=== PATIENT | female | born 1975 | race Hispanic/Latino ===

== ENCOUNTER 2022-07-28 20:36 | Emergency (ER) | payer BC ==
[~2022-07-28] VITALS: Ht 165.1 cm; Wt 110.8 kg
[2022-07-28 21:18] LABS: BASOPHILS % (AUTO) 0.3 % (0.0-5.0); EOSINOPHILS % (AUTO) 1.4 % (0.0-8.0); HEMATOCRIT 41.5 % (36-48); LYMPHOCYTES % (AUTO) 31.9 % (21.0-51.0); MEAN CORPUSCULAR HEMOGLOBIN 26.8 pg (27.0-33.0); MEAN CORPUSCULAR HGB CONC 32.5 g/dL (32.0-36.0); MEAN CORPUSCULAR VOLUME 82.5 fL (79-99); MONOCYTES % (AUTO) 7.7 % (3.0-13.0); NEUTROPHILS % (AUTO) 58.4 % (40.0-77.0); PLATELET COUNT (AUTO) 379 K/uL (130-400); RED BLOOD CELL COUNT(AUTO) 5.03 MIL/uL (4.00-5.50); RED CELL DISTRIBUTION WIDTH 13.7 % (11.0-15.5)
[2022-07-28 21:27] LABS: HCG,QUALITATIVE URINE NEGATIVE (NEGATIVE)
[2022-07-28] MEDS ORDERED: SOLU-MEDROL 125MG VIAL IM ONE (21:30)
[2022-07-28 21:31] LABS: APPEARANCE,URINE CLEAR (CLEAR); BILIRUBIN,URINE NEGATIVE (NEGATIVE); COLOR,URINE LIGHT-YELLOW (YELLOW); GLUCOSE, URINE (UA) >=1000 mg/dL (NEGATIVE); KETONES,URINE NEGATIVE (NEGATIVE); LEUKOCYTE ESTERASE ,URINE NEGATIVE Leu/uL (NEGATIVE); NITRATE,URINE NEGATIVE (NEGATIVE); OCCULT BLOOD,URINE NEGATIVE (NEGATIVE); PH,URINE 5.5 (5.0-8.0); PROTEIN,URINE NEGATIVE (NEGATIVE); UROBILINOGEN,URINE 0.2 mg/dL (0.2-1.0)
[2022-07-28 21:33] LABS: SQUAMOUS EPITHELIAL CELL,UR FEW /HPF (0-2)
[2022-07-28 21:37] LABS: ALBUMIN 2.9 g/dL (3.5-5.0); CREATININE 0.7 mg/dL (0.5-1.5); POTASSIUM 3.3 mmol/L (3.5-5.1); TOTAL PROTEIN, SERUM 7.4 g/dL (6.0-8.3)
[2022-07-29] MEDS ORDERED: METH4TAB3 PO (00:07)
[2022-07-29] MEDS ORDERED: HYDR25CA PO (00:07)
[2022-07-29 00:16] VITALS: BP 126/74
[2022-07-29] MEDS ORDERED: POTASSIUM BICARB/CIT AC 25 MEQ TABLET.EFF PO ONE (00:30)
== END 2022-07-29 00:31 | disposition home or self-care (01) ==
LOC: EDH 20:36
DX: S29.011A Strain of muscle and tendon of front wall of thorax, initial encounter (principal); F41.9 Anxiety disorder, unspecified; I10 Essential (primary) hypertension; E11.9 Type 2 diabetes mellitus without complications; Z88.8 Allergy status to other drugs, medicaments and biological substances; X58.XXXA Exposure to other specified factors, initial encounter; Y93.89 Activity, other specified; Y92.89 Other specified places as the place of occurrence of the external cause; Y99.8 Other external cause status
CPT/HCPCS: 99284; 84484; 80053; 85025; 81001; 81025; 36415; 96372; 93005; J2930

== ENCOUNTER 2024-06-22 08:33 | Emergency (ER) | payer BC ==
[~2024-06-22] VITALS: Ht 165.1 cm; Wt 113.4 kg
[~2024-06-22 08:33] MED LIST: HYDR25CA PO; METH4TAB3 PO
[2024-06-22 08:40] VITALS: BP 126/88; PULSE 90; RESP 16; TEMP 98.3; O2SAT 96
--- NOTE | 2024-06-22 09:47 | EKG ---
[facility] Test Date: 2024-06-22 Test Time: 09:30:06 Pat Name: MAGEN SKINNER Department: [facility] Room: Gender: F Polisher Aluminum: [id number] : 1975 Requested By: JENNIFER NIXON Order Number: [id number] Reading MD: Radha Al Measurements Intervals [place] Rate: 83 P: 30 ID: [id number] QRS: -6 QRSD: 94 T: 40 QT: 359 QTc: 423 Interpretive Statements Sinus rhythm Probable left atrial enlargement Compared to ECG 07/28/2022 20:57:56 No significant changes Electronically Signed On 06-22-2024 14:04:42 [employer]DOCTORAL SCHOLAR by Radha Al Please click the below link to view image of tracing.
[2024-06-22 09:50] LABS: BASOPHILS # (AUTO) 0.02 K/uL (0.00-0.20); BASOPHILS % (AUTO) 0.2 % (0.0-5.0); EOSINOPHILS # (AUTO) 0.03 K/uL (0.00-0.70); EOSINOPHILS % (AUTO) 0.4 % (0.0-8.0); HEMATOCRIT 47.3 % (36-48); IMMATURE GRANULOCYTE ABSOLUTE 0.03 K/uL (0-1); LYMPHOCYTES # (AUTO) 0.8 K/uL (1.0-4.8); LYMPHOCYTES % (AUTO) 9.5 % (21.0-51.0); MEAN CORPUSCULAR HEMOGLOBIN 28.3 pg (27.0-33.0); MEAN CORPUSCULAR VOLUME 85.7 fL (79-99); MONOCYTES # (AUTO) 0.5 K/uL (0.1-1.0); MONOCYTES % (AUTO) 5.5 % (3.0-13.0); PLATELET COUNT (AUTO) 321 K/uL (130-400); RED BLOOD CELL COUNT(AUTO) 5.52 MIL/uL (4.00-5.50); RED CELL DISTRIBUTION WIDTH 13.7 % (11.0-15.5); WHITE BLOOD COUNT (AUTO) 8.3 K/uL (4.8-10.8)
--- NOTE | 2024-06-22 10:00 | NUR ---
PT MOVED FROM ER LOBBY INTO ER BED 14, ASSUMED CARE AT THIS TIME.
[2024-06-22 10:05] LABS: ALBUMIN 3.1 g/dL (3.5-5.0); BILIRUBIN,DIRECT 0.1 mg/dL (0.0-0.3); BILIRUBIN,TOTAL 0.4 mg/dL (0.2-1.0); TOTAL PROTEIN, SERUM 7.9 g/dL (6.0-8.3)
[2024-06-22 10:08] LABS: HCG,QUALITATIVE URINE NEGATIVE (NEGATIVE)
[2024-06-22 10:13] LABS: CREATININE 0.8 mg/dL (0.5-1.0); POTASSIUM 4.3 mmol/L (3.5-5.1)
[2024-06-22] MEDS: ondanSETRON 4MG INJ IVP ONE (10:13)
[2024-06-22] MEDS: morPHINE 4 MG SYG IVP ONE (10:14)
[2024-06-22] MEDS: 0.9% NACL 500ML IV.SOLN 500 ML IV ONE (10:14)
[2024-06-22 10:20] LABS: APPEARANCE,URINE CLEAR (CLEAR); BILIRUBIN,URINE NEGATIVE (NEGATIVE); COLOR,URINE LIGHT-YELLOW (YELLOW); GLUCOSE, URINE (UA) >=1000 mg/dL (NEGATIVE); KETONES,URINE NEGATIVE (NEGATIVE); LEUKOCYTE ESTERASE ,URINE NEGATIVE Leu/uL (NEGATIVE); NITRATE,URINE NEGATIVE (NEGATIVE); OCCULT BLOOD,URINE NEGATIVE (NEGATIVE); PH,URINE 5.5 (5.0-8.0); PROTEIN,URINE NEGATIVE (NEGATIVE); UROBILINOGEN,URINE 0.2 mg/dL (0.2-1.0)
[2024-06-22 10:21] LABS: ADD UA MICROSCOPIC YES
[2024-06-22 10:22] LABS: SQUAMOUS EPITHELIAL CELL,UR RARE /HPF (0-2); WBC,URINE 0-1 /HPF (0-1)
--- NOTE | 2024-06-22 10:50 | ERN ---
ED Note History of Present Illness Stated Complaint: FLANK PAIN, FREQUENCY Chief Complaint: Flank Pain Time Seen by MD: 09:05 Dictation: 48-year-old female presents to the ED for evaluation of left flank pain onset one month ago worsening the last couple of days, rating her pain a 9/10. Patient reports hematuria, frequency, dizziness, but denies any other associated symptoms at this time. Patient states the pain radiates from her left lower back to her left abdomen. Patient was seen at the ER in [place] but was only prescribed muscle relaxers due to believing she was experiencing sciatic pain. Surgical history appendectomy. Allergies: Coded Allergies: acetaminophen (Unverified Allergy, Unknown, 07/28/22) cetirizine (Unverified Allergy, Unknown, 07/28/22) dextromethorphan (Unverified Allergy, Unknown, 07/28/22) doxylamine (Unverified Allergy, Unknown, 07/28/22) ibuprofen (Unverified Allergy, Unknown, 07/28/22) pseudoephedrine (Unverified Allergy, Unknown, 07/28/22) Home Meds Active Scripts Cyclobenzaprine HCl (Cyclobenzaprine HCl) 5 Mg Tablet, 5 MG PO BID for 5 Days, #10 TAB Prov:JENNIFER NIXON MD 06/22/24 Hydroxyzine Pamoate (Vistaril) 25 Mg Capsule, 25 MG PO TID for anxiety, #15 CAP Prov:RADHA FLORENTINO MD 07/29/22 Methylprednisolone (Medrol) 4 Mg Tab.ds.pk, 4 MG PO AD for 6 Days, #1 PACK Prov:RADHA FLORENTINO MD 07/29/22 Past Medical History Past Medical History: Diabetes-Type II, Hypertension Additional Past Medical Hx: SCIATICA, LT Surgical History: Appendectomy Social History: Negative LMP: May 22, 2024 Review of System Dictation Constitutional: Negative for fever,chills, and weight loss Eyes: Negative for injury, pain,redness, and discharge ENT: Negative for injury,pain or swelling Cardiovascular: Negative for chest pain, palpitations, and edema Respiratory: Negative for shortness of breath, cough, and wheezing, Abdomen/GI: Positive for left flank pain Negative for abdominal pain, nausea, vomiting, diarrhea, and constipation Back: Negative for injury and pain : Positive for Hematuria, frequency Negative for injury, bleeding and discharge MS/Extremity: Negative for injury and deformity Skin: Negative for rash, and discoloration Neuro: Positive for dizziness Negative for headache, weakness, numbness, tingling, and seizure Psych: Negative for suicide ideation, homicidal ideation, and hallucinations Initial Vital Sign VS Vital Signs Date Time Temp Pulse Resp B/P (MAP) Pulse Ox O2 Delivery O2 Flow Rate FiO2 06/22/24 08:36 98.2 90 16 126/88 96 Room Air 0 06/22/24 08:40 21 Physical Exam Dictation General: awake, alert, NAD Head/Face: Normocephalic, atraumatic Eyes: PERRL, EOMI, vision at baseline ENT: oral cavity clear, TMs clear, no signs of infection Neck: Trachea midline, supple, no nuchal rigidity Cardiovascular: RRR, normal S1/S2, No MRGs, no JVD Respiratory: CTAB, no respiratory distress, No rales or wheezes Abdomen: Soft, positive for left flank pain, non-distended, normal bowel sounds, no guarding or rebound. Skin: Warm, dry, normal turgor, no rash MS/Extremity: Pulses equal, no cyanosis, neurovascular intact, FROM Neuro: COAx4, GCS 15, strength 5/5, CN 2-12 intact, normal cerebellar exam, normal gait, Psych: Normal behavior, mood, and affect normal Results (Laboratory/Radiology) Laboratory/Radiology Laboratory Tests Test 06/22/24 09:27 06/22/24 09:28 White Blood Count 8.3 K/uL (4.8-10.8) Red Blood Count 5.52 MIL/uL (4.00-5.50) H Hemoglobin 15.6 g/dL (12.0-16.0) Hematocrit 47.3 % (36-48) Mean Corpuscular Volume 85.7 fL (79-99) Mean Corpuscular Hemoglobin 28.3 pg (27.0-33.0) Mean Corpuscular Hemoglobin Concent 33.0 g/dL (32.0-36.0) Red Cell Distribution Width 13.7 % (11.0-15.5) Platelet Count 321 K/uL (130-400) Mean Platelet Volume 10.9 fL (7.5-10.5) H Immature Granulocyte % (Auto) 0.4 % (0-1) Neutrophils (%) (Auto) 84.0 % (40.0-77.0) H Lymphocytes (%) (Auto) 9.5 % (21.0-51.0) L Monocytes (%) (Auto) 5.5 % (3.0-13.0) Eosinophils (%) (Auto) 0.4 % (0.0-8.0) Basophils (%) (Auto) 0.2 % (0.0-5.0) Neutrophils # (Auto) 7.0 K/uL (1.8-7.7) Lymphocytes # (Auto) 0.8 K/uL (1.0-4.8) L Monocytes # (Auto) 0.5 K/uL (0.1-1.0) Eosinophils # (Auto) 0.03 K/uL (0.00-0.70) Basophils # (Auto) 0.02 K/uL (0.00-0.20) Absolute Immature Granulocyte (auto 0.03 K/uL (0-1) Nucleated Red Blood Cells 0.0 % (0.0-0.19) White Cell Morphology Comment See comments Sodium Level 134 mmol/L (136-145) L Potassium Level 4.3 mmol/L (3.5-5.1) Chloride Level 97 mmol/L (101-111) L Carbon Dioxide Level 28 mmol/L (21-32) Blood Urea Nitrogen 14 mg/dL (7-18) Creatinine 0.8 mg/dL (0.5-1.0) Glomerular Filtration Rate Calc 92 mL/min (>90) Random Glucose 344 mg/dL (70-105) H Total Calcium 9.4 mg/dL (8.5-10.1) Total Bilirubin 0.4 mg/dL (0.2-1.0) Direct Bilirubin 0.1 mg/dL (0.0-0.3) Aspartate Amino Transf (AST/SGOT) 19 U/L (10-37) Alanine Aminotransferase (ALT/SGPT) 46 U/L (12-78) Alkaline Phosphatase 137 U/L (50-136) H Total Creatine Kinase 40 U/L (21-232) Troponin I High Sensitivity 4 ng/L (4-50) Total Protein 7.9 g/dL (6.0-8.3) Albumin 3.1 g/dL (3.5-5.0) L Lipase 37 U/L (16-77) Urine Color LIGHT-YELLOW (YELLOW) Urine Appearance CLEAR (CLEAR) Urine pH 5.5 (5.0-8.0) Urine Specific [place] 1.036 (1.001-1.031) Urine Protein NEGATIVE mg/dL (NEGATIVE) Urine Glucose (UA) >=1000 mg/dL (NEGATIVE) H Urine Ketones NEGATIVE mg/dL (NEGATIVE) Urine Occult Blood NEGATIVE (NEGATIVE) Urine Nitrate NEGATIVE (NEGATIVE) Urine Bilirubin NEGATIVE mg/dL (NEGATIVE) Urine Urobilinogen 0.2 mg/dL (0.2-1.0) Urine Leukocyte Esterase NEGATIVE Claudia/uL Urine RBC 2-5 /HPF (0-1) H Urine WBC 0-1 /HPF (0-1) Urine Squamous Epithelial Cells RARE /HPF (0-2) Urine Bacteria None /HPF (None Seen) Urine HCG, Qualitative NEGATIVE (NEGATIVE) Labs Reviewed?: Yes EKG Comment: EKG 06/22/2024 time 9:30 a.m. ventricular rate 83, WI 147, QRS D 94, QT 359. Sinus rhythm, probable left atrial enlargement. No STEMI CT Scan Comment: REASON: left flank ORDERING PHYSICIAN: JENNIFER NIXON MD PROCEDURE: ABD PELVWO - CT ABD/PEL WO CON RENAL/APPY CT ABD/PEL WO CON RENAL/APPY HISTORY: Left flank pain COMPARISON: None TECHNIQUE: Multiple sequential axial images of the abdomen and pelvis were obtained from the dome of the diaphragm through symphysis pubis. Patient was not given contrast through intravenous route. Oral contrast was not given. FINDINGS: No pleural effusion is seen bilaterally. There is no evidence of parenchymal disease or pulmonary nodule of the visualized lower lungs. Degenerative changes of the thoracolumbar spine are present. The heart is not enlarged. Pancreas is hypodense. If there is clinical suspicion patient for pancreatitis, lipase correlation may be helpful. Gallstones and sludge material are seen in the gallbladder. There is fluid-filled small bowel loops may be related to enteritis. The liver, spleen, adrenal glands are unremarkable. There is no evidence of hydronephrosis bilaterally. No evidence of renal stone is seen. Fecal material is seen in the colon. There are normal size retroperitoneal and mesenteric lymph nodes. No ascites is seen. Atherosclerotic changes are present. Appendix has been removed. Pelvic sidewalls are symmetric bilaterally. Bladder is well distended without wall thickening. IMPRESSION: 1. Pancreas is hypodense. If there is clinical suspicion patient for pancreatitis, lipase correlation may be helpful. Gallstones and sludge material are seen in the gallbladder. There is fluid-filled small bowel loops may be related to enteritis. CT was performed with one or more following dose reduction techniques: automated exposure control, adjustment of the mA and kv according to patient's size, or use of a iterative reconstruction technique. DICTATED BY: NITA ARELLANO MD DATE: 06/22/24 1053 ED Course ED Course Orders Procedure Category Date Status Time Urinalysis Profile LAB 06/22/24 Complete 08:50 ,Urine Test LAB 06/22/24 Complete 08:50 Cbc With Differential LAB 06/22/24 Complete 08:50 Basic Metabolic Panel LAB 06/22/24 Complete 08:50 Hepatic Function Panel LAB 06/22/24 Complete 09:07 Creatine Kinase, Total LAB 06/22/24 Complete 09:07 Lipase LAB 06/22/24 Complete 09:07 12 Lead Ekg Tracing- EKG 06/22/24 Complete Technical 09:07 Troponin I High LAB 06/22/24 Complete Sensitivity 09:07 Ondansetron 4mg Inj PHA 06/22/24 Complete (Zofran 4mg Inj) 10:30 Morphine 4mg Syg PHA 06/22/24 Complete (Morphine 4mg Syg) 10:30 0.9% Nacl 500ml PHA 06/22/24 Complete Iv.Soln (Ns 500ml 10:30 Ct Abd/Pel Wo Con CT 06/22/24 Resulted Renal/Appy 10:01 Current Medications Medications (Trade) Dose Ordered Sig/Elba Route PRN Reason Start Time Stop Time Status Last Admin Dose Admin Morphine Sulfate (morPHINE 4MG SYG) 4 mg ONCE ONCE IVP 06/22/24 10:30 06/22/24 10:31 DC 06/22/24 10:14 Ondansetron HCl (zoFRAN 4MG INJ) 4 mg ONCE ONCE IVP 06/22/24 10:30 06/22/24 10:31 DC 06/22/24 10:13 Sodium Chloride 500 ml @ 0 mls/hr ONCE ONCE IV 06/22/24 10:30 06/22/24 10:31 DC 06/22/24 10:14 Vital Signs Date Time Temp Pulse Resp B/P (MAP) Pulse Ox O2 Delivery O2 Flow Rate FiO2 06/22/24 08:40 98.2 90 16 126/88 96 Room Air* 0 21 06/22/24 08:36 98.2 90 16 126/88 96 Room Air 0 Medical Decision Making MDM MDM: Differential diagnosis: Renal stones, UTI, flank pain Risk of complication and/or morbidity or mortality of patient management: None Medications-Per medication reconciliation Need for hospitalization: Patient does not meet criteria for hospitalization. Need for emergency major/minor surgery: No There are no social concerns with this patient. Prescription drug management Prescriptions will include symptomatic care I independently interpreted the test that were performed, results were reviewed by me and considered findings on radiology if ordered. DX & DISP Disposition: Discharge Departure Impression: Primary Impression: Left flank pain Condition: Stable Scripts Cyclobenzaprine HCl (Cyclobenzaprine HCl) 5 Mg Tablet 5 MG PO BID for 5 Days, #10 TAB Prov: JENNIFER NIXON MD 06/22/24 Referrals: JOVAN GRIDER MD (PCP) JENNIFER NIXON MD Jun 22, 2024 10:50
--- NOTE | 2024-06-22 11:03 | HMCIMG ---
CT ABD/PEL WO CON RENAL/APPY HISTORY: Left flank pain COMPARISON: None TECHNIQUE: Multiple sequential axial images of the abdomen and pelvis were obtained from the dome of the diaphragm through symphysis pubis. Patient was not given contrast through intravenous route. Oral contrast was not given. FINDINGS: No pleural effusion is seen bilaterally. There is no evidence of parenchymal disease or pulmonary nodule of the visualized lower lungs. Degenerative changes of the thoracolumbar spine are present. The heart is not enlarged. Pancreas is hypodense. If there is clinical suspicion patient for pancreatitis, lipase correlation may be helpful. Gallstones and sludge material are seen in the gallbladder. There is fluid-filled small bowel loops may be related to enteritis. The liver, spleen, adrenal glands are unremarkable. There is no evidence of hydronephrosis bilaterally. No evidence of renal stone is seen. Fecal material is seen in the colon. There are normal size retroperitoneal and mesenteric lymph nodes. No ascites is seen. Atherosclerotic changes are present. Appendix has been removed. Pelvic sidewalls are symmetric bilaterally. Bladder is well distended without wall thickening. IMPRESSION: 1. Pancreas is hypodense. If there is clinical suspicion patient for pancreatitis, lipase correlation may be helpful. Gallstones and sludge material are seen in the gallbladder. There is fluid-filled small bowel loops may be related to enteritis. CT was performed with one or more following dose reduction techniques: automated exposure control, adjustment of the mA and kv according to patient's size, or use of a iterative reconstruction technique.
[2024-06-22] MEDS ORDERED: CYCL5TAB3 PO (11:32)
== END 2024-06-22 11:58 | disposition home or self-care (01) ==
LOC: EDH 08:33
DX: K80.20 Calculus of gallbladder without cholecystitis without obstruction (principal); K85.90 Acute pancreatitis without necrosis or infection, unspecified; E11.9 Type 2 diabetes mellitus without complications; I10 Essential (primary) hypertension; Z88.6 Allergy status to analgesic agent; Z90.49 Acquired absence of other specified parts of digestive tract
CPT/HCPCS: 99284; 74176; 96374; 96361; 96375; 82550; 80076; 84484; 80048; 83690; 85025; 81001; 81025; 36415; 93005; J7040; J2405; J2270

== ENCOUNTER 2024-07-05 03:39 | Emergency (ER) | payer BC ==
[~2024-07-05] VITALS: Ht 165.1 cm; Wt 114.0 kg
[~2024-07-05 03:39] MED LIST changes: +CYCL5TAB3 PO
--- NOTE | 2024-07-05 03:48 | NUR ---
UA CUP PROVIDED
[2024-07-05 05:19] LABS: APPEARANCE,URINE CLEAR (CLEAR); BILIRUBIN,URINE NEGATIVE (NEGATIVE); COLOR,URINE LIGHT-YELLOW (YELLOW); GLUCOSE, URINE (UA) >=1000 mg/dL (NEGATIVE); HCG,QUALITATIVE URINE NEGATIVE (NEGATIVE); KETONES,URINE 20 mg/dL (NEGATIVE); LEUKOCYTE ESTERASE ,URINE NEGATIVE Leu/uL (NEGATIVE); NITRATE,URINE NEGATIVE (NEGATIVE); OCCULT BLOOD,URINE MODERATE (NEGATIVE); PROTEIN,URINE NEGATIVE (NEGATIVE); UROBILINOGEN,URINE 0.2 mg/dL (0.2-1.0)
[2024-07-05 05:46] LABS: ADD UA MICROSCOPIC YES; BACTERIA,URINE FEW /HPF (None Seen); MUCUS,URINE RARE LPF (None Seen); SQUAMOUS EPITHELIAL CELL,UR RARE /HPF (0-2)
--- NOTE | 2024-07-05 05:53 | ERN ---
ED Note History of Present Illness Stated Complaint: HIGH GLUCOSE, VOMITING Chief Complaint: Multiple Complaints Time Seen by MD: 03:54 Dictation: This is a 48-year-old female who is morbidly obese presented to the emergency room with complaints of vomitings and not feeling well. Apparently she checked her sugar and it was 500 and she was concerned and came into the ER for further evaluation she denied any burning micturition. All these symptoms started on 07/04/2024. In triage her sugar was 213 Temperature 96 pulse 88 respirations 20 blood pressure 138/78 Her chronic medical problems include diabetes mellitus and hypertension Allergies: Coded Allergies: acetaminophen (Unverified Allergy, Unknown, 07/28/22) cetirizine (Unverified Allergy, Unknown, 07/28/22) dextromethorphan (Unverified Allergy, Unknown, 07/28/22) doxylamine (Unverified Allergy, Unknown, 07/28/22) ibuprofen (Unverified Allergy, Unknown, 07/28/22) pseudoephedrine (Unverified Allergy, Unknown, 07/28/22) Home Meds Active Scripts Cyclobenzaprine HCl (Cyclobenzaprine HCl) 5 Mg Tablet, 5 MG PO BID for 5 Days, #10 TAB Prov:JENNIFER NIXON MD 06/22/24 Hydroxyzine Pamoate (Vistaril) 25 Mg Capsule, 25 MG PO TID for anxiety, #15 CAP Prov:RADHA FLORENTINO MD 07/29/22 Methylprednisolone (Medrol) 4 Mg Tab.ds.pk, 4 MG PO AD for 6 Days, #1 PACK Prov:RADHA FLORENTINO MD 07/29/22 Past Medical History Past Medical History: Diabetes-Type II, Hypertension Additional Past Medical Hx: SCIATICA, LT Surgical History: Appendectomy Family History: Negative Social History: Negative History: Not Applicable RN Note Reviewed/Agreed w/PFSH: Yes Review of System Dictation Constitutional: Negative for fever,chills, and weight loss Eyes: Negative for injury, pain,redness, and discharge ENT: Negative for injury,pain or swelling Cardiovascular: Negative for chest pain, palpitations, and edema Respiratory: Negative for shortness of breath, cough, and wheezing, Abdomen/GI: Negative for abdominal pain, nausea, diarrhea, and constipation positive for vomitings a few times Back: Negative for injury and pain : Negative for injury, bleeding and discharge MS/Extremity: Negative for injury and deformity Skin: Negative for rash, and discoloration Neuro: Negative for headache, weakness, numbness, tingling, and seizure Psych: Negative for suicide ideation, homicidal ideation, and hallucinations Initial Vital Sign VS Vital Signs Date Time Temp Pulse Resp B/P (MAP) Pulse Ox O2 Delivery O2 Flow Rate FiO2 07/05/24 03:40 95.9 88 20 139/78 98 Room Air 07/05/24 06:00 0 21 Physical Exam Dictation General: awake, alert, NAD morbidly obese female Head/Face: Normocephalic, atraumatic Eyes: PERRL, EOMI, vision at baseline ENT: oral cavity clear, TMs clear, no signs of infection Neck: Trachea midline, supple, no nuchal rigidity Cardiovascular: RRR, normal S1/S2, No MRGs, no JVD Respiratory: CTAB, no respiratory distress, No rales or wheezes Abdomen: Soft, mildly-tender, non-distended, normal bowel sounds, no guarding or rebound. Skin: Warm, dry, normal turgor, no rash MS/Extremity: Pulses equal, no cyanosis, neurovascular intact, FROM Neuro: COAx4, GCS 15, strength 5/5, CN 2-12 intact, normal cerebellar exam, normal gait, Psych: Normal behavior, mood, and affect normal Extremities-trace edema without any palpable cords, Homans sign is negative Results (Laboratory/Radiology) Laboratory/Radiology Laboratory Tests Test 07/05/24 03:42 07/05/24 04:49 07/05/24 05:53 Whole Blood Glucose 213 MG/DL (70-110) H Urine Color LIGHT-YELLOW (YELLOW) Urine Appearance CLEAR (CLEAR) Urine pH 5.0 (5.0-8.0) Urine Specific [place] 1.045 (1.001-1.031) Urine Protein NEGATIVE mg/dL (NEGATIVE) Urine Glucose (UA) >=1000 mg/dL (NEGATIVE) H Urine Ketones 20 mg/dL (NEGATIVE) H Urine Occult Blood MODERATE (NEGATIVE) H Urine Nitrate NEGATIVE (NEGATIVE) Urine Bilirubin NEGATIVE mg/dL (NEGATIVE) Urine Urobilinogen 0.2 mg/dL (0.2-1.0) Urine Leukocyte Esterase NEGATIVE Claudia/uL Urine RBC 6-10 /HPF (0-1) H Urine WBC 2-5 /HPF (0-1) H Urine Squamous Epithelial Cells RARE /HPF (0-2) Urine Bacteria FEW /HPF (None Seen) Urine HCG, Qualitative NEGATIVE (NEGATIVE) White Blood Count 10.1 K/uL (4.8-10.8) Red Blood Count 5.48 MIL/uL (4.00-5.50) Hemoglobin 15.6 g/dL (12.0-16.0) Hematocrit 47.7 % (36-48) Mean Corpuscular Volume 87.0 fL (79-99) Mean Corpuscular Hemoglobin 28.5 pg (27.0-33.0) Mean Corpuscular Hemoglobin Concent 32.7 g/dL (32.0-36.0) Red Cell Distribution Width 14.1 % (11.0-15.5) Platelet Count 337 K/uL (130-400) Mean Platelet Volume 10.7 fL (7.5-10.5) H Immature Granulocyte % (Auto) 0.4 % (0-1) Neutrophils (%) (Auto) 73.2 % (40.0-77.0) Lymphocytes (%) (Auto) 18.9 % (21.0-51.0) L Monocytes (%) (Auto) 6.4 % (3.0-13.0) Eosinophils (%) (Auto) 0.9 % (0.0-8.0) Basophils (%) (Auto) 0.2 % (0.0-5.0) Neutrophils # (Auto) 7.4 K/uL (1.8-7.7) Lymphocytes # (Auto) 1.9 K/uL (1.0-4.8) Monocytes # (Auto) 0.7 K/uL (0.1-1.0) Eosinophils # (Auto) 0.09 K/uL (0.00-0.70) Basophils # (Auto) 0.02 K/uL (0.00-0.20) Absolute Immature Granulocyte (auto 0.04 K/uL (0-1) Nucleated Red Blood Cells 0.0 % (0.0-0.19) Sodium Level 137 mmol/L (136-145) Potassium Level 3.8 mmol/L (3.5-5.1) Chloride Level 102 mmol/L (101-111) Carbon Dioxide Level 26 mmol/L (21-32) Blood Urea Nitrogen 8 mg/dL (7-18) Creatinine 0.6 mg/dL (0.5-1.0) Glomerular Filtration Rate Calc 112 mL/min (>90) Random Glucose 196 mg/dL (70-105) H Total Calcium 8.8 mg/dL (8.5-10.1) Total Bilirubin 0.6 mg/dL (0.2-1.0) Direct Bilirubin 0.1 mg/dL (0.0-0.3) Aspartate Amino Transf (AST/SGOT) 40 U/L (10-37) H Alanine Aminotransferase (ALT/SGPT) 66 U/L (12-78) Alkaline Phosphatase 106 U/L (50-136) Total Protein 8.1 g/dL (6.0-8.3) Albumin 3.3 g/dL (3.5-5.0) L Lipase 31 U/L (16-77) Labs Reviewed?: Yes ED Course ED Course Orders Procedure Category Date Status Time Bedside Glucose CPOE 07/05/24 Transmitted Fingerstick 03:47 Urinalysis Profile LAB 07/05/24 Complete 03:47 ,Urine Test LAB 07/05/24 Complete 03:47 Cbc With Differential LAB 07/05/24 Complete 03:47 Basic Metabolic Panel LAB 07/05/24 Complete 03:47 Lipase LAB 07/05/24 Complete 03:47 Hepatic Function Panel LAB 07/05/24 Complete 03:47 Ondansetron 4mg Inj PHA 07/05/24 Complete (Zofran 4mg Inj) 06:00 0.9% Nacl 500ml PHA 07/05/24 Complete Iv.Soln (Ns 500ml 06:00 Current Medications Medications (Trade) Dose Ordered Sig/Elba Route PRN Reason Start Time Stop Time Status Last Admin Dose Admin Ondansetron HCl (zoFRAN 4MG INJ) 4 mg ONCE ONCE IVP 07/05/24 06:00 07/05/24 06:01 DC 07/05/24 06:06 Sodium Chloride 500 ml @ 0 mls/hr ONCE ONCE IV 07/05/24 06:00 07/05/24 06:01 DC 07/05/24 06:06 Vital Signs Date Time Temp Pulse Resp B/P (MAP) Pulse Ox O2 Delivery O2 Flow Rate FiO2 07/05/24 06:49 98.1 66 17 122/81 98 Room Air* 0 21 07/05/24 06:00 98.1 85 18 115/73 100 Room Air* 0 21 07/05/24 03:40 95.9 88 20 139/78 98 Room Air We will perform diagnostic labs, advanced imaging and administer medications according to the patient's complaint. Once the results are available, will review and personally interpreted the labs to rule out any acute life- threatening emergency the trach require immediate intervention and treatment. I will then re-evaluate the patient after treatment and diagnostic exams have return to determine whether the patient requires any further testing, can safely be discharged home or need further admission to hospital for additional treatment and evaluation. Labs reviewed CBC BNP 7 with a normal limits lipase 31 urinalysis was unremarkable Although patient sugar was over 500 per her report at home it was 213 and 196. She recently had a CT scan of the abdomen and pelvis that showed only mild en teritis. DC to follow up with the primary care physician for optimal glycemic control Medical Decision Making MDM MDM: Differential diagnosis: DKA, viral gastroenteritis, food poisoning, dyspepsia, medication induced side effects Rationale: Tests considered and ordered secondary to shared decision making include: Previous outside records reviewed: Old ER visits. Risk of complication and/or morbidity or mortality of patient management: None Medications-Per medication reconciliation Need for hospitalization: Patient does not meet criteria for hospitalization. Need for emergency major/minor surgery: No There are no social concerns with this patient. Prescription drug management Prescriptions will include symptomatic care Patient's prior external medical records from other ER visits were reviewed by me as indicated. Prior testing and results from previous visits were reviewed. Prior tests were taken into account with medical decision making and resource utilization, independent historian/historians were used to obtain complete medical history. I independently interpreted the test that were performed, results were reviewed by me and considered findings on radiology if ordered. Medical management and examination interpretation discussions were had by me with other qualified healthcare professionals as indicated for the patient's care. Problem List Problem List: (1) Acute vomiting (2) Hyperglycemia DX & DISP Disposition: Discharge Departure Impression: Primary Impression: Acute vomiting Additional Impression: Hyperglycemia Condition: Stable Additional Instructions: Patient and the caregiver have been informed of all the diagnostic tests and the imaging conducted during the today's visit to the emergency room and has verbalized understanding of the results I have personally reviewed and interpreted all diagnostic exams performed here in the ER today as well as the vital signs documented by the nursing staff. The patient is now being discharged to home and should follow up with the primary care physician or the specialist as directed by the ER staff. Follow-up with primary care provider in 1 to 2 days. Take medications as directed here in the emergency room. Okay to continue home medications unless otherwise discussed during your visit in the emergency room today. Return to your nearest emergency room if symptoms worsen or if there is no improvement. Call 911 if you need immediate assistance. Take Tylenol or Motrin [id number] as needed and if no contraindications are present. Increase oral hydration. A wound culture or urine culture was ordered here in the emergency room department please follow-up with primary care provider and advise them to get repeat ports from our facility. If you had any Andrae wrap/splints that were applied here, please do not remove them until you see your primary care or specialty. Referrals: JOVAN GRIDER MD (PCP) SHANIQUA CANAS MD Jul 05, 2024 05:53
--- NOTE | 2024-07-05 05:53 | NUR ---
PT CARE ASSUMED AT THIS TIME
[2024-07-05 06:06] LABS: BASOPHILS # (AUTO) 0.02 K/uL (0.00-0.20); BASOPHILS % (AUTO) 0.2 % (0.0-5.0); EOSINOPHILS # (AUTO) 0.09 K/uL (0.00-0.70); EOSINOPHILS % (AUTO) 0.9 % (0.0-8.0); HEMATOCRIT 47.7 % (36-48); IMMATURE GRANULOCYTE ABSOLUTE 0.04 K/uL (0-1); LYMPHOCYTES # (AUTO) 1.9 K/uL (1.0-4.8); LYMPHOCYTES % (AUTO) 18.9 % (21.0-51.0); MEAN CORPUSCULAR HEMOGLOBIN 28.5 pg (27.0-33.0); MEAN CORPUSCULAR HGB CONC 32.7 g/dL (32.0-36.0); MONOCYTES # (AUTO) 0.7 K/uL (0.1-1.0); MONOCYTES % (AUTO) 6.4 % (3.0-13.0); NEUTROPHILS # (AUTO) 7.4 K/uL (1.8-7.7); NEUTROPHILS % (AUTO) 73.2 % (40.0-77.0); PLATELET COUNT (AUTO) 337 K/uL (130-400); RED BLOOD CELL COUNT(AUTO) 5.48 MIL/uL (4.00-5.50); RED CELL DISTRIBUTION WIDTH 14.1 % (11.0-15.5); WHITE BLOOD COUNT (AUTO) 10.1 K/uL (4.8-10.8)
[2024-07-05] MEDS: ondanSETRON 4MG INJ IVP ONE (06:06)
[2024-07-05] MEDS: 0.9% NACL 500ML IV.SOLN 500 ML IV ONE (06:06)
[2024-07-05 06:22] LABS: ALBUMIN 3.3 g/dL (3.5-5.0); BILIRUBIN,DIRECT 0.1 mg/dL (0.0-0.3); BILIRUBIN,TOTAL 0.6 mg/dL (0.2-1.0); CREATININE 0.6 mg/dL (0.5-1.0); POTASSIUM 3.8 mmol/L (3.5-5.1); TOTAL PROTEIN, SERUM 8.1 g/dL (6.0-8.3)
[2024-07-05 06:49] VITALS: BP 122/81; PULSE 66; RESP 17; TEMP 98; O2SAT 98
== END 2024-07-05 07:13 | disposition home or self-care (01) ==
LOC: EDH 03:39
DX: E11.65 Type 2 diabetes mellitus with hyperglycemia (principal); R11.10 Vomiting, unspecified; I10 Essential (primary) hypertension; Z88.6 Allergy status to analgesic agent; Z90.49 Acquired absence of other specified parts of digestive tract
CPT/HCPCS: 99284; 96374; 80076; 80048; 83690; 85025; 82948; 81001; 81025; 36415; J2405